=== PATIENT | male | born 1980 ===

== ENCOUNTER → 2017-11-14 | Day surgery (SDC) | payer OTHER ==
[~2017-11-14] MED LIST: BRIM0.1S OP; BRIMONIDINE TARTRATE 0.2% 5ML OP SCH; BRIMONIDINE TARTRATE 0.2% 5ML OPR SCH; DIPH25CA5 PO; DIVA500T5 PO; DORZ2SOL OPB; FLUO20CA35 PO; LATA0.5S OP; LEVO50TA6 PO; PATIENT'S ALLERGY INFO NEEDS ENTERED SCH; PILO4SOL OP; PILOCARPINE HCL 2% OP SOLN 15 ML BTL OPR SCH; PROPARACAINE 0.5% OP SOLN PER DROP CHARGE OPR SCH; PrednisoLONE ACET 1% OP SUSP 5 ML BTL OP SCH; RISP4TAB7 PO; RMRS/45 PO
[2017-11-14 11:38] VITALS: BP 138/83; PULSE 62; O2SAT 99
--- NOTE | 2017-11-14 11:40 | [facility] Operative Report ---
Operative Report Date of Service Nov 14, 2017. Operative Report Diagnosis: Glaucoma, right eye Procedure: SLT superior 180 degrees, right eye Complications: none I attest to the content of the Intraoperative Record and any orders documented therein. Any exceptions are noted below.
--- NOTE | 2017-11-14 11:41 | Discharge Instructions-[facility]urgCtr ---
Discharge Instructions Date of Service Nov 14, 2017. Visit Reason for Visit: Right Eye Glaucoma Discharge Discharge Diagnosis / Problem: glaucoma Discharge Goals Goal(s): Improve disease control Activity Recommendations Activity Limitations: per Instructions/Follow-up section Anesthesia . Post Anesthesia Instructions: If you have had General Anesthesia or IV Sedation: * Do not drive today. * Resume driving when surgeon permits. * Do not make important decisions or sign legal documents today. * Call surgeon for: 1. Temperature elevations greater than 101 degrees F. 2. Uncontrollable pain. 3. Excessive bleeding. 4. Persistent nausea and vomiting. 5. Medication intolerance (nausea, vomiting or rash). * For nausea and vomiting use only clear liquids such as: tea, soda, bouillon until nausea subsides, then gradually increase diet as tolerated. * If you have any concerns or questions, call your surgeon's office. If physician is unavailable and it is an emergency, call 911 or go to the nearest emergency room. . Instructions / Follow-Up Instructions / Follow-Up ACTIVITY RECOMMENDATIONS: * No limitations RETURN TO SCHOOL/WORK: * No limitations DIET: * No limitations MEDICATIONS: Resume previous medications unless instructed otherwise by your surgeon. * Please use Prednisolone acetate drops prescription given to you at your office appointment as follows: 1 drop in effected eye 4 times a day for 5 days. * Continue all glaucoma drops as usual with no interruption to either eye. SPECIAL CARE INSTRUCTIONS: Call your doctor at with any concerns or problems. FOLLOW UP VISIT: Follow-up with Dr Braun in 1 hour. Diet Recommendations Home Diet: resume previous diet Pending Studies Studies pending at discharge: no Medical Emergencies . Who to Call and When: Medical Emergencies: If at any time you feel your situation is an emergency, please call 911 immediately. . Non-Emergent Contact Non-Emergency issues call your: Manager Medical Writing . . "Provider Documentation" section prepared by Rj Braun. .
== END | disposition home or self-care (01) ==
LOC: X.SURG 10:40
PROVIDERS: ATTEND Ophthalmology
DX: H40.1110 Primary open-angle glaucoma, right eye, stage unspecified (principal)